=== PATIENT | male | born 1975 | race African-American/Black ===

== ENCOUNTER 2021-08-10 12:11 | Emergency (ER) | payer MEDICAID ==
--- NOTE | 2021-08-10 13:02 | EDM.PDOC ---
ED HPI GENERAL MEDICAL PROBLEM - General Chief Complaint: General Stated Complaint: POSSIBLE INFECTED INCISION Time Seen by Provider: 08/10/21 12:22 Source of Information: Reports: Patient History Limitations: Reports: No Limitations - History of Present Illness INITIAL COMMENTS - FREE TEXT/NARRATIVE: Had surgery for laproscopic colon resection on 07/20/21 and he has noted that the incision has some drainage from it. He has suture that has not dissolved at this time and that is also causing some issues with pulling on it and not allowing it to heal. He has been cleaning it with alcohol. He has no pain to the area. Bowels are working well. No fever with it. Onset: Gradual Location: Reports: Abdomen - Related Data Allergies Allergy/AdvReac Type Severity Reaction Status Date / Time No Known Allergies Allergy Verified 08/10/21 12:22 Home Meds: Home Meds . [No Known Home Meds] 08/10/21 [History] Past Medical History - Past Surgical History GI Surgical History: Reports: Colon Social & Family History - Family History Family Medical History: Unobtainable - Tobacco Use Tobacco Use Status *Q: Current Every Day Tobacco User Years of Tobacco use: 5 Packs/Tins Daily: 1 - Caffeine Use Caffeine Use: Reports: None - Recreational Drug Use Recreational Drug Use: No ED ROS GENERAL - Review of Systems Review Of Systems: See Below Constitutional: Denies: Fever, Chills GI/Abdominal: Reports: Abdominal Pain Skin: Reports: Wound (umbilicus) ED EXAM, GENERAL - Physical Exam Exam: See Below Exam Limited By: No Limitations General Appearance: Alert, WD/WN Neurological: Alert, Oriented Skin Exam: Wound/Incision (Has small amount of drainage around the umbilicus. Not red or warm around it. ) Course - Vital Signs Last Recorded V/S: Last Vital Signs Temp 97.7 F 08/10/21 12:19 Pulse 93 08/10/21 12:19 Resp 18 08/10/21 12:19 BP 146/100 H 08/10/21 12:19 Pulse Ox 96 08/10/21 12:19 - Orders/Labs/Meds Orders: Active Orders 24 hr Category Date Time Status CBC WITH AUTO DIFF [HEME] Stat Lab 08/10/21 12:35 Ordered CRP [C-REACTIVE PROTEIN] [CHEM] Stat Lab 08/10/21 12:35 Ordered Departure - Departure Time of Disposition: 13:09 Disposition: Home, Self-Care 01 Condition: Good Clinical Impression: Infected wound - Discharge Information *PRESCRIPTION DRUG MONITORING PROGRAM REVIEWED*: Not Applicable *COPY OF PRESCRIPTION DRUG MONITORING REPORT IN PATIENT LAST: Not Applicable Instructions: Wound Infection Additional Instructions: antibiotic topically to the area twice a day. keep area clean and dry cover area will call on Tuesday with the culture report Sepsis Event Note (ED) - Focused Exam Vital Signs: Vital Signs Temp Pulse Resp BP Pulse Ox 08/10/21 12:19 97.7 F 93 18 146/100 H 96 - Problem List & Annotations (1) Infected wound SNOMED Code(s): 47713585 Code(s): T14.8XXA - OTHER INJURY OF UNSPECIFIED BODY REGION, INITIAL ENCOUNTER; L08.9 - LOCAL INFECTION OF THE SKIN AND SUBCUTANEOUS TISSUE, UNSP Status: Acute Priority: High - Problem List Review Problem List Initiated/Reviewed/Updated: Yes - My Orders Last 24 Hours: My Active Orders 08/10/21 12:35 CBC WITH AUTO DIFF [HEME] Stat CRP [C-REACTIVE PROTEIN] [CHEM] Stat - Assessment/Plan Last 24 Hours: My Active Orders 08/10/21 12:35 CBC WITH AUTO DIFF [HEME] Stat CRP [C-REACTIVE PROTEIN] [CHEM] Stat
== END 2021-08-10 13:31 | disposition home or self-care (01) ==
LOC: CC.ED 12:11
DX: T81.40XA Infection following a procedure, unspecified, initial encounter (principal); Z72.0 Tobacco use
CPT/HCPCS: 36415; 85025; 86140; 87070; 87077; 87186; 99284